=== PATIENT | male | born 1975 | race African-American/Black ===

== ENCOUNTER 2024-01-23 08:16 | Inpatient (IN) | payer MEDICAID ==
[~2024-01-23] VITALS: Ht 182.9 cm; Wt 148.8 kg
[~2024-01-23 08:16] MED LIST: DIVA-153 PO; FLUO10CA24 PO; NALT50TA33 PO; OLAN10TA22 PO
[2024-01-23] MEDS ORDERED: HYDR10SY17 PO (08:20)
[2024-01-23] MEDS ORDERED: SERT-158 PO (08:20)
[2024-01-23] MEDS ORDERED: TRAZ-252 PO (08:20)
[2024-01-23 08:58] LABS: BASOPHILS % (AUTO) 0.3 % (0.0-2.0); EOSINOPHILS % (AUTO) 0.8 % (1.0-6.0); HEMATOCRIT 43.6 % (41-53); HEMOGLOBIN 14.4 g/dL (13.5-17.5); LYMPHOCYTES # (AUTO) 3.6 K/uL (1.0-4.8); LYMPHOCYTES % (AUTO) 34.6 % (22.0-44.0); MEAN CORPUSCULAR HEMOGLOBIN 32.7 pg (26.0-34.0); MEAN CORPUSCULAR VOLUME 99 fL (80-100); MONOCYTES # (AUTO) 0.9 K/uL (0.1-1.0); MONOCYTES % (AUTO) 8.3 % (2.0-9.0); NEUTROPHILS # (AUTO) 5.9 K/uL (1.8-7.7); PLATELET COUNT (AUTO) 296 K/uL (150-450); RED BLOOD CELL COUNT(AUTO) 4.41 MIL/uL (4.50-5.90); RED CELL DISTRIBUTION WIDTH 16.5 % (11.5-14.5); WHITE BLOOD COUNT (AUTO) 10.5 K/uL (4.5-11.0)
[2024-01-23 09:02] LABS: ANION GAP 12 mmol/L (8-16); CALCIUM, TOTAL 9.2 mg/dL (8.8-10.5); CARBON DIOXIDE 23 mmol/L (22-29); CHLORIDE 103 mmol/L (98-107); GLOMERULAR FILTR. RATE CALC > 60 mL/min (>60); GLUCOSE,RANDOM 109 mg/dL (70-110); POTASSIUM 4.1 mmol/L (3.5-5.1); SODIUM SERUM 138 mmol/L (136-145); UREA NITROGEN, BLOOD 15 mg/dL (7-18)
[2024-01-23 09:09] LABS: ALCOHOL, BLOOD (SERUM) < 3 mg/dL (0-10)
[2024-01-23 10:22] LABS: COVID AG,FIA SOURCE NASAL SWAB
[2024-01-23 10:40] LABS: SARS-COV2 (COVID) ANTIGEN,FIA Negative (Negative)
[2024-01-23] MEDS ORDERED: HALOPERIDOL 5 MG TABLET PO PRN (12:30)
[2024-01-23 19:42] LABS: PH,URINE DRUG SCREEN 5.5 (5.0-8.0)
[2024-01-23 19:50] LABS: AMPHET/METH SCREEN,URINE NEGATIVE (NEGATIVE); BARBITURATE SCREEN, URINE NEGATIVE (NEGATIVE); BENZODIAZEPINES SCREEN,URINE NEGATIVE (NEGATIVE); CANNABINOID SCREEN,URINE POSITIVE (NEGATIVE); COCAINE SCREEN,URINE NEGATIVE (NEGATIVE); METHADONE SCREEN, URINE NEGATIVE (NEGATIVE); OPIATE SCREEN,URINE NEGATIVE (NEGATIVE); PHENCYCLIDINE SCREEN,URINE NEGATIVE (NEGATIVE)
[2024-01-23 19:51] LABS: ALCOHOL, URINE DRUG SCREEN NEGATIVE (NEGATIVE)
[2024-01-23 23:01] VITALS: BP 122/74; PULSE 68; RESP 17; TEMP 97.4; O2SAT 98
[2024-01-24 08:11] VITALS: BP 104/57; PULSE 60; RESP 17; TEMP 97.7; O2SAT 99
[2024-01-24] MEDS ORDERED: MAGNESIUM HYDROXIDE SUSPENSION 30 ML UDCUP PO PRN (11:45)
[2024-01-24] MEDS ORDERED: CloNIDine HCL 0.1 MG TABLET PO PRN (11:45)
[2024-01-24] MEDS ORDERED: IBUPROFEN 600 MG TABLET PO PRN (11:45)
[2024-01-24] MEDS ORDERED: ONDANSETRON HCL 4 MG TABLET PO PRN (11:45)
[2024-01-24] MEDS ORDERED: BACITRACIN 28 GM OINTMENT TP PRN (11:45)
[2024-01-24] MEDS ORDERED: ALBUTEROL SULFATE HFA 90 MCG/PUFF 8 GM INHALER IH PRN (11:45)
[2024-01-24] MEDS ORDERED: PETROLATUM,WHITE 28 GM JELLY TP PRN (11:45)
[2024-01-24] MEDS ORDERED: ACETAMINOPHEN 325 MG TABLET PO PRN (11:45)
[2024-01-24] MEDS ORDERED: MAG HYDROX/ALUMINUM HYD/SIMETH ES 30 ML SUSPENSION UDCUP PO PRN (11:45)
[2024-01-24] MEDS ORDERED: OMEPRAZOLE 20 MG CAPSULE PO PRN (11:45)
[2024-01-24] MEDS ORDERED: BENZOCAINE/MENTHOL LOZENGE PO PRN (11:45)
[2024-01-24] MEDS ORDERED: DOCUSATE SODIUM 100 MG CAPSULE PO PRN (11:45)
[2024-01-24] MEDS ORDERED: LOPERAMIDE HCL 2 MG CAPSULE PO PRN (11:45)
[2024-01-24] MEDS ORDERED: HYDR-4527 PO (11:52)
[2024-01-24] MEDS: LORazepam 2 MG TABLET PO PRN (17:00)
[2024-01-24 20:25] VITALS: BP 124/74; PULSE 107; RESP 17; TEMP 97; O2SAT 98
[2024-01-24] MEDS: ZOLPIDEM TARTRATE 10 MG TABLET PO PRN (20:28)
[2024-01-24] MEDS: QUEtiapine FUMARATE 300 MG TABLET PO SCH (20:28)
[2024-01-25 08:37] VITALS: BP 100/60; PULSE 60; RESP 18; TEMP 97.5; O2SAT 98
[2024-01-25 20:18] VITALS: BP 109/64; PULSE 74; RESP 17; TEMP 97.5; O2SAT 99
[2024-01-26 10:13] VITALS: BP 112/66; PULSE 75; RESP 17; TEMP 97.7; O2SAT 99
[2024-01-26 20:14] VITALS: BP 113/73; PULSE 83; RESP 18; TEMP 97.5; O2SAT 97
[2024-01-27 08:16] VITALS: BP 108/68; PULSE 70; RESP 18; TEMP 97.5; O2SAT 100
[2024-01-27] MEDS ORDERED: QUET300T2 PO (13:34)
== END 2024-01-27 18:57 | disposition home or self-care (01) | DRG 750 ==
LOC: EMS 08:16 → B3A 19:25
PROVIDERS: ADMIT Psychiatry & Neurology Psychiatry; ATTEND Psychiatry & Neurology Psychiatry
DX: F20.9 Schizophrenia, unspecified (principal); R45.851 Suicidal ideations; Z91.148 Patient's other noncompliance with medication regimen for other reason; F41.9 Anxiety disorder, unspecified; G47.00 Insomnia, unspecified; Z20.822 Contact with and (suspected) exposure to COVID-19; F12.10 Cannabis abuse, uncomplicated; K59.00 Constipation, unspecified; E66.9 Obesity, unspecified; Z88.0 Allergy status to penicillin; Z68.41 Body mass index [BMI] 40.0-44.9, adult
CPT/HCPCS: 80048; 80307; 85025; 93005; 99285; G0480